=== PATIENT | female | born 1990 | race Asian ===

== ENCOUNTER 2017-11-15 19:52 | Inpatient (IN) | payer OTHER ==
[~2017-11-15] VITALS: Ht 157.5 cm; Wt 80.0 kg
[2017-11-15 20:16] VITALS: BP 121/74
[2017-11-15 20:29] LABS: MICROSCOPIC INDICATED
[2017-11-15 20:37] LABS: CREATININE,URINE RANDOM 32.5 mg/dL
[2017-11-15] MEDS ORDERED: GLYB2.5T2 PO (20:42)
[2017-11-15] MEDS ORDERED: PREN1TAB60 PO (20:42)
[2017-11-15] MEDS ORDERED: ACETAMINOPHEN 325 MG TABLET ONE (20:53)
[2017-11-15] MEDS: ACETAMINOPHEN 325 MG TABLET PO PRN (20:56)
[2017-11-15] MEDS: D5%-LACTATED RINGERS 1,000 ML IV SCH (21:11)
[2017-11-15] MEDS ORDERED: OXYTOCIN 30U/ 0.9% NaCL 500ML 500 ML IV ONE (21:11)
[2017-11-15 21:14] LABS: BASOPHILS # (AUTO) 0.03 x10^3/uL (0-0.1); BASOPHILS % (AUTO) 1 % (0-1); EOSINOPHILS # (AUTO) 0.06 x10^3/uL (0-0.4); EOSINOPHILS % (AUTO) 1 % (1-7); LYMPHOCYTES # (AUTO) 1.62 x10^3/uL (1-3.4); LYMPHOCYTES % (AUTO) 22 % (22-44); MD NO; MEAN CORPUSCULAR HEMOGLOBIN 25.3 pg (27.0-34.8); MEAN CORPUSCULAR HGB CONC 32.2 g/dL (32.4-35.8); MEAN CORPUSCULAR VOLUME 78.5 fL (80-100); MEAN PLATELET VOLUME 8.4 fL (7.4-10.4); MONOCYTES # (AUTO) 0.63 x10^3/uL (0.2-0.8); MONOCYTES % (AUTO) 9 % (2-9); NEUTROPHILS # (AUTO) 5.04 x10^3/uL (1.8-6.8); NEUTROPHILS % (AUTO) 68 % (42-75); PLATELET COUNT 296 x10^3/uL (130-400); RED CELL DISTRIBUTION WIDTH 17.3 % (9.6-15.2)
[2017-11-15] MEDS ORDERED: NEWBORN KIT ONE (21:14)
[2017-11-15] MEDS ORDERED: BETAMETHASONE 6 MG/ML, 5ML IM ONE (21:17)
[2017-11-15 21:21] LABS: ALANINE AMINOTRANSFERASE 37 U/L (12-78); ALBUMIN 2.5 g/dL (3.4-5.0); ANION GAP 12 mmol/L (5-15); BILIRUBIN, DIRECT < 0.1 mg/dL (0.1-0.2); CALCIUM 9.1 mg/dL (8.5-10.1); CHLORIDE 105 mmol/L (98-107); CREATININE 0.68 mg/dL (0.55-1.02)
[2017-11-15 21:23] LABS: ALKALINE PHOSPHATASE 113 U/L (45-117); BILIRUBIN,TOTAL 0.1 mg/dL (0.2-1.0); TOTAL PROTEIN 7.3 g/dL (6.4-8.2)
[2017-11-15] MEDS: BETAMETHASONE 6 MG/ML, 5ML IM SCH (21:23)
[2017-11-15] MEDS ORDERED: FENTANYL PF 100 MCG/2ML IV PRN (21:30)
[2017-11-15] MEDS ORDERED: FENTANYL PF 100 MCG/2ML IVPush PRN (21:30)
[2017-11-15] MEDS ORDERED: CALCIUM CARBONATE 500 MG TAB.CHEW PO PRN (21:30)
[2017-11-15] MEDS ORDERED: MISOPROSTOL 25 MCG TABLET VG PRN (21:30)
[2017-11-15] MEDS ORDERED: ONDANSETRON 2MG/ML, 2ML IVPush PRN (21:30)
[2017-11-15] MEDS: LACTATED RINGERS 1,000 ML IV SCH (21:57)
[2017-11-15] MEDS ORDERED: MISOPROSTOL 25 MCG TABLET ONE (23:06)
[2017-11-16 01:04] VITALS: BP 134/85
[2017-11-16] MEDS ORDERED: ACETAMINOPHEN 325 MG TABLET ONE (04:06)
[2017-11-16] MEDS: ACETAMINOPHEN 325 MG TABLET PO PRN (04:08)
[2017-11-16] MEDS: D5%-LACTATED RINGERS 1,000 ML IV SCH ×3 (05:11→21:11)
[2017-11-16 07:39] VITALS: BP 132/78
[2017-11-16] MEDS ORDERED: OXYTOCIN 30U/ 0.9% NaCL 500ML 500 ML IV PRN (08:13)
[2017-11-16] MEDS ORDERED: FENTANYL/BUPIV./NS/PF 250 ML EPIDCONT SCH ×2 (08:21→13:07)
[2017-11-16] MEDS ORDERED: LACTATED RINGERS 1,000 ML IV SCH (08:21)
[2017-11-16] MEDS ORDERED: LIDOCAINE 1%, 10ML ONE ×2 (08:24→12:23)
[2017-11-16] MEDS ORDERED: OXYTOCIN 30U/ 0.9% NaCL 500ML 500 ML ONE (08:24)
[2017-11-16] MEDS ORDERED: MISOPROSTOL 200 MCG TABLET ONE (08:24)
[2017-11-16] MEDS ORDERED: LACTATED RINGERS 1,000 ML IVBOLUS PRN ×2 (08:30→13:30)
[2017-11-16] MEDS ORDERED: TERBUTALINE 1 MG/ML, 1ML IVPush PRN (08:30)
[2017-11-16] MEDS ORDERED: FENTANYL/BUPIV./NS/PF 250 ML EPIDCONT ONE ×2 (12:18→12:23)
[2017-11-16] MEDS ORDERED: BUPIVACAINE/PF 0.25% ONE (12:18)
[2017-11-16] MEDS: LACTATED RINGERS 1,000 ML IV SCH ×4 (12:28→21:07)
[2017-11-16] MEDS ORDERED: DIPHENHYDRAMINE 50 MG/ML, 1ML IVPush PRN (13:30)
[2017-11-16] MEDS ORDERED: EPHEDRINE 50 MG/ML, 1ML IVPush PRN (13:30)
[2017-11-16] MEDS ORDERED: NALOXONE 0.4 MG/ML, 1ML IVPush PRN (13:30)
[2017-11-16] MEDS ORDERED: ONDANSETRON 2MG/ML, 2ML IVPush PRN (13:30)
[2017-11-16] MEDS ORDERED: ONDANSETRON 2MG/ML, 2ML ONE (17:13)
[2017-11-16] MEDS ORDERED: CALCIUM CARBONATE 500 MG TAB.CHEW ONE (19:47)
[2017-11-16] MEDS: BETAMETHASONE 6 MG/ML, 5ML IM SCH (21:07)
[2017-11-16] MEDS ORDERED: FENTANYL PF 100 MCG/2ML ONE (22:11)
[2017-11-17] MEDS ORDERED: IBUPROFEN 600 MG TABLET ONE (01:12)
[2017-11-17] MEDS ORDERED: OXYTOCIN 30U/ 0.9% NaCL 500ML 500 ML ONE (01:12)
[2017-11-17] MEDS: LACTATED RINGERS 1,000 ML IV SCH (01:17)
[2017-11-17] MEDS: OXYTOCIN 30U/ 0.9% NaCL 500ML 500 ML IV SCH ×3 (01:17→21:02)
[2017-11-17] MEDS: IBUPROFEN 600 MG TABLET PO PRN ×4 (01:18→22:40)
[2017-11-17] MEDS ORDERED: MISOPROSTOL 200 MCG TABLET PR PRN (01:30)
[2017-11-17] MEDS ORDERED: ONDANSETRON 2MG/ML, 2ML IV PRN (01:30)
[2017-11-17] MEDS ORDERED: CARBOPROST TROMETHAMINE 250 MCG/ML, 1ML IM PRN (01:30)
[2017-11-17] MEDS ORDERED: MISOPROSTOL 200 MCG TABLET PR ONE (01:30)
[2017-11-17] MEDS ORDERED: HYDROcodone/APAP 5/325 TABLET PO PRN ×2 (01:30)
[2017-11-17] MEDS ORDERED: CALCIUM CARBONATE 500 MG TAB.CHEW PO PRN (01:30)
[2017-11-17 03:10] VITALS: BP 119/69
[2017-11-17] MEDS: ACETAMINOPHEN 325 MG TABLET PO PRN ×2 (05:33→10:29)
[2017-11-17] MEDS ORDERED: PRENATAL VIT/IRON/FA 1 EACH TABLET ONE (07:48)
[2017-11-17] MEDS: DOCUSATE 100 MG CAPSULE PO PRN ×2 (07:50→22:40)
[2017-11-17] MEDS: PRENATAL VIT/IRON/FA 1 EACH TABLET PO SCH (07:50)
[2017-11-17 07:55] VITALS: BP 111/77
[2017-11-17 08:03] LABS: MEAN CORPUSCULAR HEMOGLOBIN 25.5 pg (27.0-34.8); MEAN CORPUSCULAR HGB CONC 32.4 g/dL (32.4-35.8); MEAN CORPUSCULAR VOLUME 78.6 fL (80-100); MEAN PLATELET VOLUME 8.4 fL (7.4-10.4); PLATELET COUNT 275 x10^3/uL (130-400); RED BLOOD COUNT 4.05 x10^6/uL (3.82-5.3)
[2017-11-17 08:29] LABS: MD YES
[2017-11-17 08:30] LABS: BAND#(MANUAL) 0.56 x10^3/uL; BANDS%(MANUAL) 3 % (0-7); LYMPH#(MANUAL) 1.48 x10^3/uL (1-3.4); LYMPHS% (MANUAL) 8 % (22-44); METAMYELOCYTES# (MANUAL) 0.19 x10^3/uL (0-0); METAMYELOCYTES% (MANUAL) 1 % (0-1); MONOS#(MANUAL) 0.56 x10^3/uL (0.3-2.7); MONOS% (MANUAL) 3 % (2-9); SEG#(MANUAL) 15.73 x10^3/uL (1.8-6.8); SEGS% (MANUAL) 85 % (42-75)
[2017-11-17 08:31] LABS: <PLATELET ESTIMATE> ADEQUATE; <PLT MORPHOLOGY> NORMAL PLT MORPH; ANISOCYTOSIS 1+; MICROCYTOSIS 1+; POLYCHROMASIA 1+
[2017-11-17 12:00] VITALS: BP 120/74
[2017-11-17 20:00] VITALS: BP 123/75
[2017-11-18] MEDS: IBUPROFEN 600 MG TABLET PO PRN (06:19)
[2017-11-18] MEDS: OXYTOCIN 30U/ 0.9% NaCL 500ML 500 ML IV SCH (07:02)
[2017-11-18 07:30] VITALS: BP 111/69
[2017-11-18] MEDS: DOCUSATE 100 MG CAPSULE PO PRN (08:43)
[2017-11-18] MEDS: PRENATAL VIT/IRON/FA 1 EACH TABLET PO SCH (08:43)
[2017-11-18] MEDS ORDERED: IBUP-1222 PO (09:27)
== END 2017-11-18 10:10 | disposition home or self-care (01) | DRG 775 ==
LOC: LDOP 19:52 → LDIP 21:22 → 2NW 11-17 02:46
PROVIDERS: ADMIT Obstetrics & Gynecology; ATTEND Obstetrics & Gynecology
PROC: 10E0XZZ Delivery of Products of Conception, External Approach (ICD-10-PCS; principal; 2017-11-15)
PROC: 10907ZC Drainage of Amniotic Fluid, Therapeutic from Products of Conception, Via Natural or Artificial Opening (ICD-10-PCS; 2017-11-15)
PROC: 0HQ9XZZ Repair Perineum Skin, External Approach (ICD-10-PCS; 2017-11-15)
PROC: 3E0P3VZ Introduction of Hormone into Female Reproductive, Percutaneous Approach (ICD-10-PCS; 2017-11-15)
PROC: 3E0P7VZ Introduction of Hormone into Female Reproductive, Via Natural or Artificial Opening (ICD-10-PCS; 2017-11-15)
PROC: 10H07YZ Insertion of Other Device into Products of Conception, Via Natural or Artificial Opening (ICD-10-PCS; 2017-11-15)
PROC: 3E0R3BZ Introduction of Anesthetic Agent into Spinal Canal, Percutaneous Approach (ICD-10-PCS; 2017-11-15)
PROC: 00HU33Z Insertion of Infusion Device into Spinal Canal, Percutaneous Approach (ICD-10-PCS; 2017-11-15)
DX: O14.94 Unspecified pre-eclampsia, complicating childbirth (principal); O24.425 Gestational diabetes mellitus in childbirth, controlled by oral hypoglycemic drugs; Z37.0 Single live birth; Z3A.36 36 weeks gestation of pregnancy; Z79.84 Long term (current) use of oral hypoglycemic drugs; Z88.5 Allergy status to narcotic agent; O70.0 First degree perineal laceration during delivery
CPT/HCPCS: 36415; 76815; 80053; 81001; 82248; 82570; 82803; 82962; 84156; 84550; 85025; 86850; 86900; 87086; J0702; J2405; J3490; J2590; J3010; J7120